=== PATIENT | male | born 1970 | race Caucasian/White ===

== ENCOUNTER → 2018-06-30 | Emergency (ER) | payer SELFPAY ==
[2018-06-30 16:51] LABS: URINE BLOOD (Dip) POC 1+ (NEGATIVE); URINE GLUCOSE (Dip) POC Negative (NEGATIVE); URINE KETONES (Dip) POC Negative (NEGATIVE); URINE LEUKOCYTE EST (Dip) POC Negative (NEGATIVE); URINE NITRITE (Dip) POC Negative (NEGATIVE); URINE TOTAL PROTEIN POC Negative (NEGATIVE)
[2018-06-30] MEDS: KETOROLAC 30 MG INJ IM (17:02)
== END | disposition home or self-care (01) ==
LOC: FTE 15:55
DX: M54.5 Low back pain (principal)
CPT/HCPCS: 81003; 96372; 99284-25